=== PATIENT | male | born 1975 | race Caucasian/White ===

== ENCOUNTER 2023-08-31 13:32 | Emergency (ER) | payer BC ==
[2023-08-31 14:12] LABS: Bilirubin Neg (Negative); Blood, Urine 50 (Negative); Clarity Clear (Clear); Glucose, Urine (Dipstick) >=1000 mg/dL (Negative); Ketone, Urine Negative (Negative); Leukocyte 100 (Negative); Nitrite Negative (Negative); Protein, Urine (Dipstick) 15 mg/dl (Neg-Trace)
[2023-08-31 14:18] LABS: #Monocytes 0.6 10x3/uL (0.0-1.1); #Neutrophils 6.7 10x3/uL (1.5-8.4); %Basophils 0.2 % (0.0-2.0); %Eosinophils 0.5 % (0.0-6.0); %Lymphocytes 13.4 % (18.0-47.0); %Monocytes 7.4 % (0.0-10.0); %Neutrophils 78.1 % (40.0-75.0); Hematocrit 40.2 % (38.8-50.0); Hemoglobin 14.5 g/dL (13.5-17.5); Mean Corpuscular HGB CONC 36.1 g/dL (32.0-36.0); Mean Corpuscular Hemoglobin 32.8 pg (27.0-33.0); Mean Platelet Volume 10.6 fl (7.4-10.4); Platelet Count 147 10x3/uL (150-450); RBC Distribution Width 14.3 % (11.5-14.5); Red Blood Cell (RBC) Count 4.42 10x6/uL (4.32-5.72); White Blood Cell (WBC) Count 8.5 10x3/uL (3.5-10.5)
[2023-08-31 14:30] LABS: ALT (SGPT) 60 U/L (8-55); AST (SGOT) 24 U/L (5-34); Albumin 4.3 g/dL (3.5-5.0); Alkaline Phosphatase 92 U/L (40-110); Anion Gap 16 mmol/L (10-20); Bilirubin, Total 2.2 mg/dL (0.2-1.2); Calc. Creatinine Clearance 0 mL/min (70-130); Calcium 9.2 mg/dL (7.8-10.44); Carbon Dioxide 22 mmol/L (22-29); Chloride 100 mmol/L (98-107); Estimated GFR 101; Globulin 2.7 g/dL (2.4-3.5); Potassium 4.2 mmol/L (3.5-5.1); Sodium 134 mmol/L (136-145)
[2023-08-31 14:36] LABS: BUN (Urea Nitrogen) 16 mg/dL (8.9-20.6)
[2023-08-31 14:37] LABS: Glucose 406 mg/dL (70-105)
[2023-08-31 15:02] LABS: Bacteria/HPF Rare-Few HPF (None Seen); CAUTI Indications for Culture Acute Hematuria; Squamous Epithelial None Seen HPF (0-3); WBC/HPF Greater than 50 HPF (0-3)
[2023-08-31 15:05] LABS: Urine Culture Reflex Yes Yes
[2023-08-31] MEDS ORDERED: cefTRIAXone (ROCEPHIN) 1 GM VIAL ONE (15:19)
[2023-08-31 16:37] LABS: Actual Bicarbonate (HCO3v) 23.8 mEq/L (22-28); Base Excess -0.8 mEq/L (-2 - +2); Calcium, Ionized (venous) 1.15 mmol/L (1.16-1.32); Chloride (VBG) 98 mmol/L (98-106); Hematocrit-VBG 44 % (42.0-52.0); Hemoglobin (Hb) 15.1 g/dL (13.1-17.2); Puncture Site Other Site; RapidComm Collect By CBN; Sodium 134 mmol/L (133-146); pH (venous) 7.399 (7.32-7.43)
== END 2023-08-31 16:30 | disposition home or self-care (01) ==
LOC: CSHERS 13:32
DX: N39.0 Urinary tract infection, site not specified (principal); E11.65 Type 2 diabetes mellitus with hyperglycemia; I10 Essential (primary) hypertension; I48.91 Unspecified atrial fibrillation; Z79.01 Long term (current) use of anticoagulants
CPT/HCPCS: 36415; 36416; 80053; 81001; 82805; 83735; 85025; 87077; 87086; 87186; 96374; J0696